=== PATIENT | female | born 1990 | race Asian ===

== ENCOUNTER 2023-02-21 13:42 | Inpatient (IN) | payer OTHER ==
[~2023-02-21] VITALS: Ht 162.6 cm; Wt 78.3 kg
[2023-02-21] VITALS (11 sets, daily range): BP systolic 113–130; BP diastolic 55–70
[2023-02-21] MEDS ORDERED: MULTTAB20 PO (14:06)
[2023-02-21] MEDS ORDERED: PANT20TA6 PO (14:06)
[2023-02-21] MEDS ORDERED: HOME MED LIST COMPLETE! XX SCH (14:10)
[2023-02-21] MEDS ORDERED: LIDOCAINE 1% MDV 20ML VIAL INFIL PRN (14:30)
[2023-02-21] MEDS ORDERED: TRANEXAMIC ACID INJection 1,000 MG in NS 100 ML IV PRN (14:30)
[2023-02-21] MEDS ORDERED: CARBOPROST TROMETHAMINE 250 MCG/ML AMP IM PRN (14:30)
[2023-02-21] MEDS ORDERED: OXYTOCIN DRIP 30 UNITS in IV 1 EA IV PRN ×4 (14:30)
[2023-02-21] MEDS ORDERED: METHYLERGONOVINE MALEATE 0.2MG/ML 1ML VIAL IM PRN (14:30)
[2023-02-21] MEDS ORDERED: PENICILLIN G POTASSIUM 5 MU IV 5 MU in D5W MINI-BAG PLUS 100 ML IV STA (14:30)
[2023-02-21 14:57] LABS: HEMATOCRIT 34.9 % (36.0-47.0); HEMOGLOBIN 11.7 g/dl (12.0-15.5); MEAN CORPUSCULAR HEMOGLOBIN 31.5 pg (27.0-33.0); MEAN CORPUSCULAR HGB CONC 33.5 g/dl (32.0-36.5); MEAN CORPUSCULAR VOLUME 94.1 fl (80.0-96.0); PLATELET COUNT, AUTOMATED 237 10^3/uL (150-450); RED BLOOD COUNT 3.71 10^6/uL (4.00-5.40); WHITE BLOOD COUNT 9.2 10^3/uL (4.0-10.0)
[2023-02-21] MEDS: LR 1,000 ML IV SCH ×2 (15:06→18:55)
[2023-02-21] MEDS: PEN G POT 3,000,000 UNIT/50 ML 3,000,000 UNIT in IV 1 EA IV SCH ×2 (18:45→23:01)
[2023-02-21] MEDS: miSOPROStol 50MCG 1/2 TABLET PO SCH (20:01)
[2023-02-22] VITALS (36 sets, daily range): BP systolic 93–137; BP diastolic 54–102; O2SAT 99
[2023-02-22] MEDS: miSOPROStol 50MCG 1/2 TABLET PO SCH
[2023-02-22] MEDS: PEN G POT 3,000,000 UNIT/50 ML 3,000,000 UNIT in IV 1 EA IV SCH ×3 (03:10→10:52)
[2023-02-22] MEDS ORDERED: OXYTOCIN DRIP 30 UNITS in IV 1 EA IV SCH ×3 (06:05→13:45)
[2023-02-22] MEDS: LR 1,000 ML IV SCH (08:42)
[2023-02-22] MEDS ORDERED: NALOXONE INJ 0.4MG/1ML VIAL IV PRN (09:05)
[2023-02-22] MEDS ORDERED: diphenhydrAMINE 50MG/ML VIAL IV PRN (09:05)
[2023-02-22] MEDS ORDERED: FENTANYL/ROPIVACAINE/NACL BAG 100 ML EPIDURAL SCH (09:05)
[2023-02-22] MEDS ORDERED: LR 500 ML IV PRN (09:05)
[2023-02-22] MEDS ORDERED: EPIDURAL/PCA KEYS XX PRN (09:05)
[2023-02-22] MEDS ORDERED: ePHEDrine SULFATE 25 MG/5 ML(5MG/ML) SYRINGE IVP PRN (09:05)
[2023-02-22] MEDS ORDERED: ONDANSETRON 4MG 2ML VIAL IV PRN (09:05)
[2023-02-22] MEDS ORDERED: MOM 30ML SUSPENSION UDC PO PRN (13:15)
[2023-02-22] MEDS ORDERED: DOCUSATE SODIUM 100MG CAPSULE PO PRN (13:15)
[2023-02-22] MEDS ORDERED: ACETAMINOPHEN TAB 650MG DOSE (2X325MG) PO PRN (13:15)
[2023-02-22] MEDS ORDERED: LR 1,000 ML IV SCH (13:15)
[2023-02-22] MEDS ORDERED: IBUPROFEN 600MG TAB PO PRN (13:15)
[2023-02-22] MEDS ORDERED: DIBUCAINE 1% OINTMENT 30GM TOP PRN (13:15)
[2023-02-22] MEDS ORDERED: RHOGAM 300MCG (1500IU) INJ IM SCH (13:15)
[2023-02-22] MEDS ORDERED: METOCLOPRAMIDE INJ 10MG/2ML VIAL IV PRN (13:15)
[2023-02-22] MEDS ORDERED: ANUSOL HC CREAM 30GM TOP PRN (13:15)
[2023-02-22] MEDS ORDERED: METHYLERGONOVINE MALEATE 0.2 MG TAB PO PRN (13:15)
[2023-02-22] MEDS ORDERED: SLF 3 ML SYR IV PRN (15:40)
[2023-02-22] MEDS: IBUPROFEN 800 MG TAB PO PRN (18:19)
[2023-02-22] MEDS: ACETAMINOPHEN 500 MG TAB PO PRN (19:40)
[2023-02-22] MEDS: SLF 3 ML SYR IV SCH (21:54)
[2023-02-23] MEDS: ACETAMINOPHEN 500 MG TAB PO PRN ×3 (02:26→17:11)
[2023-02-23] MEDS: IBUPROFEN 800 MG TAB PO PRN (05:35)
[2023-02-23 06:00] VITALS: BP 110/63; O2SAT 100
[2023-02-23] MEDS: SLF 3 ML SYR IV SCH (06:00)
[2023-02-23] MEDS: PRENATAL VITAMINS CHEWABLE TABLET PO SCH (07:55)
[2023-02-23 18:00] VITALS: BP 110/56; O2SAT 100
[2023-02-24 06:00] VITALS: BP 98/51; O2SAT 99
[2023-02-24] MEDS: PRENATAL VITAMINS CHEWABLE TABLET PO SCH (08:05)
[2023-02-24] MEDS: ACETAMINOPHEN 500 MG TAB PO PRN (08:06)
[2023-02-24] MEDS ORDERED: MEASLES,MUMPS,RUBELLA VACCINE INJ (MMR-II) SC.IMMUN ONE (09:00)
[2023-02-24] MEDS ORDERED: COLA100C5 PO (11:47)
[2023-02-24] MEDS ORDERED: IBUP-1022 PO (11:47)
[2023-02-24] MEDS ORDERED: ACET1TAB55 PO (11:47)
[2023-02-24] MEDS ORDERED: INFLUENZA QUADRIVALENT PF VACCINE 0.5ML SYRINGE IM.IMMUN ONE (15:00)
== END 2023-02-24 14:55 | disposition home or self-care (01) | DRG 807 ==
LOC: M LDO 13:42 → M LDI 14:44 → M OBS 02-22 15:54
PROVIDERS: ADMIT Obstetrics & Gynecology; ATTEND Obstetrics & Gynecology
PROC: 10E0XZZ Delivery of Products of Conception, External Approach (ICD-10-PCS; principal; 2023-02-22)
PROC: F13Z0ZZ Hearing Screening Assessment (ICD-10-PCS; 2023-02-22)
DX: O48.0 Post-term pregnancy (principal); Z37.0 Single live birth; Z3A.40 40 weeks gestation of pregnancy; O70.1 Second degree perineal laceration during delivery; O42.02 Full-term premature rupture of membranes, onset of labor within 24 hours of rupture